=== PATIENT | male | born 1980 | race African-American/Black ===

== ENCOUNTER 2021-09-29 13:04 | Emergency (ER) | payer MEDICAID, OTHER ==
[~2021-09-29] VITALS: Ht 172.7 cm; Wt 69.0 kg
[2021-09-29] MEDS ORDERED: LABETALOL 5MG/ML SYR 20 MG/4 ML SYRINGE IV ONE (13:15)
[2021-09-29] MEDS ORDERED: IPRATROPIUM BROMIDE (0.02%) 0.5MG/2.5ML NEB HHN STA (15:20)
[2021-09-29] MEDS ORDERED: ALBUTEROL (0.083%) 2.5MG/3ML NEB HHN STA (15:20)
[2021-09-29 15:54] LABS: BASOPHILS % 0.7 % (0.0-2.0); EOSINOPHILS % 0.9 % (0.0-5.0); HEMATOCRIT. 29.4 % (42.0-52.0); HEMOGLOBIN. 10.1 g/dL (14.0-18.0); MEAN CORPUSCULAR HEMOGLOBIN 31.6 pg (28.0-32.0); MEAN CORPUSCULAR VOLUME 92.4 fL (80.0-94.0); MEAN PLATELET VOLUME 8.3 fl (7.4-10.4); MONOCYTES % 7.2 % (2.0-8.0); NEUTROPHILS % 68.2 % (40.0-76.0); PLATELET 157 x1000/uL (130-400); RED BLOOD CELL COUNT 3.18 mill/uL (4.7-6.1); RED CELL DISTRIBUTION WIDTH 16.2 % (11.6-14.6)
[2021-09-29 15:59] LABS: CHLORIDE 99 mEq/L (98-107)
[2021-09-29] MEDS ORDERED: HYDRALAZINE 20MG/ML VIAL IV ONE ×2 (18:15→20:30)
[2021-09-29] MEDS ORDERED: LABETALOL HCL VIAL 20 MG/4 ML VIAL IV ONE (23:15)
[2021-09-29] MEDS ORDERED: LABETALOL 5MG/ML SYR 20 MG/4 ML SYRINGE IV NR (23:30)
[2021-09-29 23:47] VITALS: BP 154/107
== END 2021-09-30 00:06 | disposition short-term general hospital (02) ==
LOC: ER 13:17 → EDBEDREQ 14:50 → EDBEDREQTM 14:50 → ER 09-30 00:06 → CANBEDREQ 09-30 02:53
DX: I16.0 Hypertensive urgency (principal); I10 Essential (primary) hypertension; J45.909 Unspecified asthma, uncomplicated; Z99.2 Dependence on renal dialysis; Z20.822 Contact with and (suspected) exposure to COVID-19
CPT/HCPCS: 36415; 71045; 80053; 83690; 84484; 85025; 87426; 93005; 94640; 96374; 96375; 96376; 99284; J0360; J3490; Z7610